=== PATIENT | female | born 1970 | race Caucasian/White ===

== ENCOUNTER 2023-01-28 17:32 | Observation (INO) | payer BC, OTHER ==
[2023-01-28 19:23] VITALS: BMI 20.7
[2023-01-28] MEDS ORDERED: SODIUM CHLORIDE 1,000 ML IV ONE ×2 (19:36→20:34)
[2023-01-28] MEDS ORDERED: ONDANSETRON 4 MG/2 ML VIAL IVPB ONE (19:36)
[2023-01-28] MEDS ORDERED: KETOROLAC TROMETHAMINE 30 MG/1 ML VIAL IVPUSH ONE (19:38)
[2023-01-28] MEDS ORDERED: KETOROLAC TROMETHAMINE 30 MG/1 ML VIAL ONE (19:40)
[2023-01-28] MEDS ORDERED: ONDANSETRON 4 MG/2 ML VIAL ONE (19:43)
[2023-01-28 19:59] LABS: EPITHELIAL CELLS FEW /hpf
[2023-01-28 20:04] LABS: HEMATOCRIT 35.7 % (32.4-45.2); MCH 32.6 pg (25.7-33.7); MCHC 33.7 g/dl (32.0-36.0); MEAN CELL VOLUME 96.8 fl (80-96); MEAN PLT VOLUME 7.8 fl (7.5-11.1); PLATELET COUNT 221.7 10^3/uL (134-434); RBC 3.69 10^6/uL (3.60-5.2); RDW 14.8 % (11.6-15.6); WHITE BLOOD COUNT 16.1 10^3/uL (4.0-10.8)
[2023-01-28 20:11] LABS: ALBUMIN 4.4 g/dl (3.4-5.0); BLOOD UREA NITROGEN 9.9 mg/dl (7-18); CALCIUM 9.8 mg/dl (8.5-10.1); CREATININE 0.9 mg/dl (0.6-1.3); POTASSIUM 3.6 mmol/L (3.5-5.1); SGOT/AST 16.8 U/L (15-37); SGPT/ALT 9.3 U/L (7-52)
[2023-01-28] MEDS ORDERED: cefTRIAXone SODIUM 1 GM VIAL ONE (20:35)
[2023-01-28] MEDS ORDERED: CEFTRIAXONE 1,000 MG in DEXTROSE 5%-WATER - 50 ML IVPB ONE (20:35)
[2023-01-28] MEDS ORDERED: morphine SULFATE 4 MG/ML VIAL ONE (21:34)
[2023-01-28] MEDS ORDERED: morphine CARPU-JECT 2 MG/1 ML DISP.SYRIN IVPUSH ONE (21:34)
[2023-01-28 22:39] LABS: BILIRUBIN,TOTAL 1.4 mg/dL (0.2-1)
[2023-01-28] MEDS ORDERED: DOCUSATE SODIUM 100 MG CAPSULE (FP) PO PRN (23:47)
[2023-01-28] MEDS ORDERED: PIPERACILLIN/TAZOB 3.375 GM 3.375 GM in DEXTROSE 5%-WATER - 50 ML IVPB ONE (23:49)
[2023-01-29] MEDS: SODIUM CHLORIDE 1,000 ML IV SCH (00:04)
[2023-01-29] MEDS ORDERED: ONDANSETRON 4 MG/2 ML VIAL IVPUSH PRN ×2 (01:00→12:51)
[2023-01-29] MEDS: ACETAMINOPHEN 1000 MG/100 ML BAG IVPB PRN ×3 (03:05→21:14)
[2023-01-29] MEDS ORDERED: TRIMETHOBENZAMIDE HCL 200MG/2ML INJ IM PRN (05:48)
[2023-01-29 08:05] LABS: BLOOD UREA NITROGEN 9.4 mg/dl (7-18); CALCIUM 7.9 mg/dl (8.5-10.1); CREATININE 0.8 mg/dl (0.6-1.3); MAGNESIUM 1.5 mg/dL (1.8-2.4); PHOSPHOROUS 3.28 (2.5-4.9); POTASSIUM 3.4 mmol/L (3.5-5.1)
[2023-01-29] MEDS ORDERED: MAGNESIUM SULF 50% (8.12 MEQ/2 ML-1 GM VIAL) IVPB ONE (08:12)
[2023-01-29] MEDS ORDERED: MAGNESIUM SULFATE IN WATER 2 GM/50 ML IVPB IVPB ONE (08:30)
[2023-01-29] MEDS ORDERED: PIPERACILLIN/TAZOB 3.375 GM 3.375 GM in DEXTROSE 5%-WATER - 50 ML IVPB SCH (09:00)
[2023-01-29] MEDS ORDERED: CEFTRIAXONE 1 GM in DEXTROSE 5%-WATER - 50 ML IVPB SCH (10:00)
[2023-01-29 10:29] LABS: BASO % 0.2 % (0-2.0); EOS % 0.1 % (0-4.5); HEMATOCRIT 28.9 % (32.4-45.2); HEMOGLOBIN 9.3 GM/dL (10.7-15.3); LYMPH % 6.9 % (8-40); MCH 30.9 pg (25.7-33.7); MCHC 32.3 g/dl (32.0-36.0); MEAN CELL VOLUME 95.7 fl (80-96); MONO % 3.6 % (3.8-10.2); NEUT % 89.2 % (42.8-82.8); PLATELET COUNT 171 10^3/uL (134-434); RBC 3.02 M/mm3 (3.60-5.2); RDW 15.1 % (11.6-15.6)
[2023-01-29] MEDS: LACTOBACILLUS ACIDOPHILUS 1 TABLET PO SCH (10:51)
[2023-01-29] MEDS: CELECOXIB 100 MG CAPSULE PO SCH ×2 (10:52→21:13)
[2023-01-29] MEDS: ESCITALOPRAM OXALATE 10 MG TABLET PO SCH (10:53)
[2023-01-29] MEDS: POLYETHYLENE GLYCOL (HEALTHYLAX) 3350 17 GM PACKET PO SCH ×2 (10:53→22:00)
[2023-01-29] MEDS: KCL 10 MEQ IVPB 10 MEQ/100 ML INFUS.BAG IVPB SCH ×2 (11:04→14:25)
[2023-01-29] MEDS: traZODone HCL 50 MG TABLET (FP) PO SCH (21:13)
[2023-01-29] MEDS ORDERED: SENNOSIDES 8.6MG TABLET (FP) PO SCH (22:00)
[2023-01-30] MEDS: SODIUM CHLORIDE 1,000 ML IV SCH ×2 (06:43→13:10)
[2023-01-30] MEDS: CELECOXIB 100 MG CAPSULE PO SCH ×2 (10:10→21:30)
[2023-01-30] MEDS: ESCITALOPRAM OXALATE 10 MG TABLET PO SCH (10:11)
[2023-01-30] MEDS: ERTAPENEM SODIUM 1 GM in SODIUM CHLORIDE 50 ML IVPB SCH (10:11)
[2023-01-30] MEDS: LACTOBACILLUS ACIDOPHILUS 1 TABLET PO SCH (10:11)
[2023-01-30] MEDS: ACETAMINOPHEN 325 MG TABLET (FP) PO PRN ×2 (10:15→16:46)
[2023-01-30 12:03] LABS: ALBUMIN 3.2 g/dl (3.4-5.0); BLOOD UREA NITROGEN 5.4 mg/dl (7-18); CREATININE 0.6 mg/dl (0.6-1.3); MAGNESIUM 1.9 mg/dL (1.8-2.4); PHOSPHOROUS 1.76 (2.5-4.9); POTASSIUM 3.6 mmol/L (3.5-5.1); SGOT/AST 11.5 U/L (15-37); SGPT/ALT 6.4 U/L (7-52); TOT PROT 5.9 g/dl (6.4-8.2)
[2023-01-30 12:12] LABS: HEMATOCRIT 31.8 % (32.4-45.2); HEMOGLOBIN 10.3 G/dL (10.7-15.3); MCHC 32.5 g/dl (32.0-36.0); MEAN CELL VOLUME 98.3 fl (80-96); MEAN PLT VOLUME 8.5 fl (7.5-11.1); RBC 3.23 10^6/uL (3.60-5.2); RDW 14.8 % (11.6-15.6); WHITE BLOOD COUNT 10.4 10^3/uL (4.0-10.8)
[2023-01-30] MEDS ORDERED: POTASSIUM PHOSPHATE 15 MM in SODIUM CHLORIDE 250 ML IVPB ONE (13:00)
[2023-01-30 15:16] LABS: BILIRUBIN,TOTAL 0.6 mg/dL (0.2-1)
[2023-01-30] MEDS: traZODone HCL 50 MG TABLET (FP) PO SCH (21:30)
[2023-01-31 08:37] LABS: HEMOGLOBIN 9.7 G/dL (10.7-15.3); MCH 31.5 pg (25.7-33.7); MCHC 32.2 g/dl (32.0-36.0); MEAN CELL VOLUME 98.2 fl (80-96); PLATELET COUNT 215.9 10^3/uL (134-434); RBC 3.06 10^6/uL (3.60-5.2); RDW 15.6 % (11.6-15.6); WHITE BLOOD COUNT 6.3 10^3/uL (4.0-10.8)
[2023-01-31 09:33] LABS: ALBUMIN 3.1 g/dl (3.4-5.0); BLOOD UREA NITROGEN 5.1 mg/dl (7-18); CALCIUM 8.3 mg/dl (8.5-10.1); CREATININE 0.6 mg/dl (0.6-1.3); MAGNESIUM 1.7 mg/dL (1.8-2.4); PHOSPHOROUS 3.94 (2.5-4.9); POTASSIUM 3.7 mmol/L (3.5-5.1); SGOT/AST 12.3 U/L (15-37); SGPT/ALT 6.2 U/L (7-52); TOT PROT 5.7 g/dl (6.4-8.2)
[2023-01-31] MEDS: LACTOBACILLUS ACIDOPHILUS 1 TABLET PO SCH (09:42)
[2023-01-31] MEDS: ERTAPENEM SODIUM 1 GM in SODIUM CHLORIDE 50 ML IVPB SCH (09:42)
[2023-01-31] MEDS: ESCITALOPRAM OXALATE 10 MG TABLET PO SCH (09:42)
[2023-01-31] MEDS: CELECOXIB 100 MG CAPSULE PO SCH (09:42)
[2023-01-31] MEDS ORDERED: POLYETHYLENE GLYCOL (HEALTHYLAX) 3350 17 GM PACKET PO SCH (10:00)
[2023-01-31] MEDS ORDERED: MAGNESIUM OXIDE 400 MG TABLET (FP) PO ONE (12:15)
[2023-01-31] MEDS: SODIUM CHLORIDE 1,000 ML IV SCH (12:38)
[2023-01-31 12:44] LABS: BILIRUBIN,TOTAL 0.6 mg/dL (0.2-1)
[2023-01-31 15:00] VITALS: BP 126/78; PULSE 72; RESP 19; TEMP 98.5
== END 2023-01-31 13:55 | disposition home or self-care (01) ==
LOC: FER 17:32 → FM/S 22:50
PROVIDERS: ADMIT Internal Medicine; ATTEND Internal Medicine
PROC: 3E033NZ Introduction of Analgesics, Hypnotics, Sedatives into Peripheral Vein, Percutaneous Approach (ICD-10-PCS; principal; 2023-01-28)
PROC: 3E03329 Introduction of Other Anti-infective into Peripheral Vein, Percutaneous Approach (ICD-10-PCS; 2023-01-28)
PROC: 3E033GC Introduction of Other Therapeutic Substance into Peripheral Vein, Percutaneous Approach (ICD-10-PCS; 2023-01-28)
PROC: 3E0337Z Introduction of Electrolytic and Water Balance Substance into Peripheral Vein, Percutaneous Approach (ICD-10-PCS; 2023-01-28)
DX: K59.00 Constipation, unspecified (principal); K52.9 Noninfective gastroenteritis and colitis, unspecified; D72.829 Elevated white blood cell count, unspecified; E87.1 Hypo-osmolality and hyponatremia; F41.9 Anxiety disorder, unspecified; R14.0 Abdominal distension (gaseous)
CPT/HCPCS: 36415; 74018-TC-FY; 74176-TC; 80048; 80053; 81003; 81015; 83735; 84100; 85025; 85027; 87086; 87186; 99285-25; G0378